=== PATIENT | female | born 1985 | race Caucasian/White ===

== ENCOUNTER 2024-05-04 15:55 | Emergency (ER) | payer MEDICAID ==
[~2024-05-04] VITALS: Ht 175.3 cm; Wt 72.0 kg
[2024-05-04 16:17] VITALS: BP 160/83; PULSE 70; RESP 20; TEMP 98.2; O2SAT 100
[2024-05-04] MEDS ORDERED: IBUP-2029 MT (17:14)
[2024-05-04] MEDS: IBUPROFEN 600MG TABLET PO ONE (17:15)
== END 2024-05-04 17:50 | disposition home or self-care (01) ==
LOC: ER 15:55
DX: S62.330A Displaced fracture of neck of second metacarpal bone, right hand, initial encounter for closed fracture (principal); Z88.5 Allergy status to narcotic agent; Z90.49 Acquired absence of other specified parts of digestive tract; W18.30XA Fall on same level, unspecified, initial encounter; Y93.89 Activity, other specified; Y92.89 Other specified places as the place of occurrence of the external cause; Y99.8 Other external cause status
CPT/HCPCS: 29125; 73130; 99283